=== PATIENT | male | born 1955 | race Asian ===

== ENCOUNTER 2023-04-30 16:39 | Emergency (ER) | payer MEDICARE, OTHER ==
[~2023-04-30] VITALS: Ht 162.6 cm; Wt 63.6 kg
[2023-04-30] MEDS ORDERED: SIMV-260 PO (16:43)
[2023-04-30] MEDS ORDERED: SODIUM CHLORIDE 0.9% 2,000 ML IV ONE (17:00)
[2023-04-30] MEDS ORDERED: PERTUSS(ACELL),DIPH,TET VAC/PF 0.5 ML SYRINGE IM. ONE (17:00)
[2023-04-30] MEDS ORDERED: LIDOCAINE 1% 10 ML VIAL SQ ONE (17:00)
[2023-04-30] MEDS ORDERED: BACITRACIN 0.9 GM PACKET OINTMENT TP ONE (17:00)
[2023-04-30 17:06] LABS: GLUCOMETER DEV NAME(LOC) ERT.5; GLUCOSE,POINT OF CARE 133 MG/DL (70-110)
[2023-04-30 17:09] LABS: BASOPHILS % (AUTO) 0.4 % (0.0-2.0); EOSINOPHILS % (AUTO) 0.9 % (1.0-6.0); HEMATOCRIT 46.2 % (41-53); HEMOGLOBIN 15.5 g/dL (13.5-17.5); LYMPHOCYTES # (AUTO) 2.1 K/uL (1.0-4.8); LYMPHOCYTES % (AUTO) 29.1 % (22.0-44.0); MEAN CORPUSCULAR HEMOGLOBIN 31.2 pg (26.0-34.0); MEAN CORPUSCULAR HGB CONC 33.5 G/dL (31.0-37.0); MEAN CORPUSCULAR VOLUME 93 fL (80-100); MONOCYTES # (AUTO) 0.4 K/uL (0.1-1.0); MONOCYTES % (AUTO) 5.8 % (2.0-9.0); NEUTROPHILS # (AUTO) 4.7 K/uL (1.8-7.7); NEUTROPHILS % (AUTO) 63.8 % (40.0-70.0); PLATELET COUNT (AUTO) 202 K/uL (150-450); RED BLOOD CELL COUNT(AUTO) 4.96 MIL/uL (4.50-5.90); RED CELL DISTRIBUTION WIDTH 12.9 % (11.5-14.5); WHITE BLOOD COUNT (AUTO) 7.3 K/uL (4.5-11.0)
[2023-04-30 17:16] LABS: CALCIUM, TOTAL 9.6 mg/dL (8.8-10.5); CREATININE 1.23 mg/dL (0.60-1.30); POTASSIUM 3.2 mmol/L (3.5-5.1)
[2023-04-30 17:22] LABS: ALBUMIN 3.8 g/dL (3.4-5.0); BILIRUBIN,TOTAL 0.4 mg/dL (0.1-1.0); TOTAL PROTEIN, SERUM 7.8 g/dL (6.4-8.2)
[2023-04-30 17:24] LABS: LACTIC ACID 1.2 mmol/L (0.4-2.0); TROPONIN I-HIGH SENSITIVITY 11 ng/L (<76)
[2023-04-30] MEDS ORDERED: POTASSIUM CHLORIDE 10% 40 MEQ/30 ML LIQUID UDCUP PO ONE (17:45)
[2023-04-30 19:38] VITALS: BP 129/85; PULSE 74; RESP 16; TEMP 97.3
== END 2023-04-30 20:16 | disposition home or self-care (01) ==
LOC: EMS 16:41
DX: S61.412A Laceration without foreign body of left hand, initial encounter (principal); E87.6 Hypokalemia; I10 Essential (primary) hypertension; X58.XXXA Exposure to other specified factors, initial encounter; Y93.89 Activity, other specified; Y92.89 Other specified places as the place of occurrence of the external cause; Y99.8 Other external cause status
CPT/HCPCS: 99284; 96360; 80053; 82962; 83605; 83690; 84484; 85025; 36415; 93005; 12002; J3490